=== PATIENT | female | born 1960 | race Hispanic/Latino ===

== ENCOUNTER 2018-12-08 19:16 | Inpatient (IN) | payer BC, OTHER ==
[~2018-12-08] VITALS: Ht 154.9 cm; Wt 80.6 kg
[2018-12-08 19:35] LABS: BASOPHILS % (AUTO) 0.8 % (0.0-5.0); EOSINOPHILS % (AUTO) 2.2 % (0.0-8.0); HEMATOCRIT 37.3 % (36-48); LYMPHOCYTES % (AUTO) 29.6 % (21.0-51.0); MEAN CORPUSCULAR HEMOGLOBIN 30.3 pg (27.0-33.0); MEAN CORPUSCULAR HGB CONC 33.6 g/dL (32.0-36.0); MONOCYTES % (AUTO) 6.9 % (3.0-13.0); NEUTROPHILS % (AUTO) 60.5 % (40.0-77.0); PLATELET COUNT (AUTO) 247 K/uL (130-400); RED BLOOD CELL COUNT(AUTO) 4.14 MIL/uL (4.00-5.50)
[2018-12-08 19:45] LABS: CREATININE 0.7 mg/dL (0.5-1.5); POTASSIUM 3.5 mmol/L (3.5-5.1)
[2018-12-08 19:46] LABS: INR 0.9 (0.85-1.15); PARTIAL THROMBOPLASTIN TIME 24.7 SEC (26.3-35.5); PROTHROMBIN TIME 9.5 SEC (9.6-11.6)
[2018-12-08 19:55] LABS: ALBUMIN 3.3 g/dL (3.5-5.0); BILIRUBIN,TOTAL 0.2 mg/dL (0.2-1.0); TOTAL PROTEIN, SERUM 7.5 g/dL (6.0-8.3)
[2018-12-08 21:58] LABS: APPEARANCE,URINE Clear (CLEAR); BILIRUBIN,URINE Negative (NEGATIVE); COLOR,URINE Yellow (YELLOW); GLUCOSE, URINE (UA) Negative (NEGATIVE); KETONES,URINE Negative (NEGATIVE); LEUKOCYTE ESTERASE ,URINE Negative (NEGATIVE); NITRATE,URINE Negative (NEGATIVE); OCCULT BLOOD,URINE Negative (NEGATIVE); PROTEIN,URINE Negative (NEGATIVE)
[2018-12-08 22:06] LABS: AMPHET/METH SCREEN,URINE POSITIVE (NEGATIVE); BARBITURATE SCREEN, URINE NEGATIVE (NEGATIVE); BENZODIAZEPINES SCREEN,URINE NEGATIVE (NEGATIVE); CANNABINOID SCREEN,URINE NEGATIVE (NEGATIVE); COCAINE SCREEN,URINE NEGATIVE (NEGATIVE); OPIATE SCREEN,URINE NEGATIVE (NEGATIVE); PHENCYCLIDINE SCREEN,URINE NEGATIVE (NEGATIVE)
[2018-12-08] MEDS ORDERED: ASPIRIN 325 MG TABLET ONE (23:33)
[2018-12-09 06:00] LABS: CREATINE KINASE, TOTAL 76 U/L (21-232); MYOGLOBIN 19 ng/mL (10-92); TROPONIN I < 0.04 ng/mL (0.00-0.06)
[2018-12-09 12:39] LABS: CREATINE KINASE, TOTAL 70 U/L (21-232); MYOGLOBIN 17 ng/mL (10-92); TROPONIN I < 0.04 ng/mL (0.00-0.06)
--- NOTE | 2018-12-09 14:30 | NUR ---
PATIENT ADMITTED TO ROOM 316. ASSESSMENT DONE AND DOCUMENTED. PATIENT AWAKE, ALERT AND ORIENTED. PATIENT AND FAMILY ORIENTED TO ROOM AND INSTRUCTED ON HOSPITAL VISITED HOURS. PATIENT DENIES ANY NUMBER OR WEAKNESS RIGHT NOW. WILL CONTINUE TO MONITOR.
--- NOTE | 2018-12-09 15:20 | NUR ---
PAGED DR. VILLALOBOS. WAITING FOR A CALL BACK.
[2018-12-09 15:22] VITALS: BP 133/64
--- NOTE | 2018-12-09 16:40 | NUR ---
DR. VILLALOBOS CALLED DR. VILLALOBOS AND INFORM HIM THAT HIS PATIENT IS NOW IN ROOM 316. NEW ORDERS RECEIVED. DR. VILLALOBOS AWARE OF SOC CONSULT RECOMMENDATIONS. DR. VILLALOBOS STATES " I WILL SEE THE PATIENT LATER TODAY"
[2018-12-09 17:10] VITALS: BP 114/54
[2018-12-09] MEDS ORDERED: CELE-84 PO (18:49)
[2018-12-09] MEDS ORDERED: PHEN-615 PO (18:49)
[2018-12-09] MEDS ORDERED: ESTR1PAT87 TD (18:49)
[2018-12-09] MEDS ORDERED: PANT40TA25 PO (18:49)
[2018-12-09 19:20] VITALS: BP 114/59
--- NOTE | 2018-12-09 23:00 | NUR ---
MD Rounds Dr. Pryor seen rounding reminded of this admission, updated of what was done so far, with pending 2d echo, MRI of the brain, added more orders & carried out. Ordered consult with Neurologist made aware that Dr. Lowry does not see pt on the weekend, pt will be seen by Wednesday, MD also reminded re: home medications, stated will reconcile later, hold for now. Pt's all concern questions addressed by MD. Pt instructed to be NPO after MN until advise as part of the procedure preparations, agreed.
[2018-12-09 23:10] VITALS: BP 127/68
[2018-12-10 03:20] VITALS: BP 120/69
[2018-12-10 05:58] LABS: CHOLESTEROL 167 mg/dL (<200); HDL CHOLESTEROL 46 mg/dL (35-85); LDL DIRECT 109 mg/dL (0-99); TRIGLYCERIDES 120 mg/dL (30-200)
[2018-12-10 06:01] LABS: CREATINE KINASE, TOTAL 47 U/L (21-232); MYOGLOBIN 16 ng/mL (10-92); TROPONIN I < 0.04 ng/mL (0.00-0.06)
[2018-12-10 07:57] VITALS: BP 135/85
[2018-12-10] MEDS: ASPIRIN 325MG EC TAB 325 MG TABLET.DR PO SCH (09:00)
[2018-12-10] MEDS: SODIUM CHLORIDE 0.9% 1000ML 1,000 ML IV SCH (09:46)
[2018-12-10] MEDS ORDERED: LORAZEPAM 1 MG TABLET PO SCH (11:30)
[2018-12-10 11:52] VITALS: BP 131/76
--- NOTE | 2018-12-10 16:28 | NUR ---
INITIAL: Met w pt and family members this afternoon to discuss dcp. Prior to admission she was living w her spouse and son. Pt states that prior to admission she was independent w ambulation and ADLs. She was previously working @ [employer] and was driving where needed. Pt does not have any DME or receive any services. Per pt she feels safe and comfortable to return home at de. Provided pt low income packet. discussed 4$ discount medication program avail @ [facility] or [facility]. [place] to continue to follow and wait for Md recommendations. Addendum: 12/11/18 at 1632 by DANTE RILEY CM Amended: Links added.
[2018-12-10 16:33] VITALS: BP 132/84
[2018-12-10 19:34] VITALS: BP 146/72
[2018-12-10 23:05] VITALS: BP 135/73
[2018-12-11] MEDS: SODIUM CHLORIDE 0.9% 1000ML 1,000 ML IV SCH (04:09)
[2018-12-11 04:33] VITALS: BP 123/74
[2018-12-11] MEDS: ASPIRIN 325MG EC TAB 325 MG TABLET.DR PO SCH (08:00)
[2018-12-11 11:38] VITALS: BP 130/78
[2018-12-11 15:47] VITALS: BP 130/73
[2018-12-11 19:30] VITALS: BP 146/78
[2018-12-11] MEDS ORDERED: ATORVASTATIN CALCIUM 10 MG TABLET PO SCH (21:00)
[2018-12-11 23:41] VITALS: BP 127/68
[2018-12-12 04:25] VITALS: BP 153/79
[2018-12-12 06:49] LABS: HEMATOCRIT 37.1 % (36-48); MEAN CORPUSCULAR HEMOGLOBIN 30.3 pg (27.0-33.0); MEAN CORPUSCULAR HGB CONC 33.7 g/dL (32.0-36.0); NUCLEATED RED BLOOD CELLS 0.1 % (0.0-0.19); PLATELET COUNT (AUTO) 245 K/uL (130-400); RED BLOOD CELL COUNT(AUTO) 4.13 MIL/uL (4.00-5.50); RED CELL DISTRIBUTION WIDTH 13.3 % (11.0-15.5); WHITE BLOOD COUNT (AUTO) 8.2 K/uL (4.8-10.8)
[2018-12-12] MEDS ORDERED: ACETAMINOPHEN 325 MG TAB ONE (06:55)
[2018-12-12] MEDS ORDERED: ACETAMINOPHEN 325 MG TAB PO PRN (07:00)
[2018-12-12 08:00] VITALS: BP 138/73
[2018-12-12] MEDS ORDERED: AMLODIPINE BESYLATE 2.5 MG TAB PO SCH (09:00)
[2018-12-12] MEDS: ASPIRIN 325MG EC TAB 325 MG TABLET.DR PO SCH (09:47)
[2018-12-12 10:09] LABS: CREATININE 0.6 mg/dL (0.5-1.5); POTASSIUM 4.1 mmol/L (3.5-5.1)
--- NOTE | 2018-12-12 13:05 | NUR ---
DISCHARGE PATIENT GIVEN DISCHARGE INSTRUCTIONS VIA TEACH BACK. RX GIVEN FOR LIPITOR AND AMLODIPINE. PATIENT INSTRUCTED REGARDING ASPIRIN 325MG DAILY UNTIL FOLLOW UP WITH DR. CAREY PER DR. REY'S RECOMMENDATIONS. 20G PIV TO LEFT HAND DISCONTINUED, TIP INTACT. PATIENT STABLE AT THIS TIME.
== END 2018-12-12 13:38 | disposition home or self-care (01) | DRG 69 ==
LOC: EDH 19:16 → EDHIP 19:17 → 3CH 12-09 15:01
PROVIDERS: ADMIT Internal Medicine; ATTEND Internal Medicine
DX: G45.9 Transient cerebral ischemic attack, unspecified (principal); M19.90 Unspecified osteoarthritis, unspecified site; E78.00 Pure hypercholesterolemia, unspecified; E78.5 Hyperlipidemia, unspecified; I10 Essential (primary) hypertension; I73.9 Peripheral vascular disease, unspecified; Z96.659 Presence of unspecified artificial knee joint; M50.90 Cervical disc disorder, unspecified, unspecified cervical region
CPT/HCPCS: 36415; 70450; 70496; 70498; 70551; 71045; 72141; 80048; 80053; 80061; 80305; 81003; 82550; 82948; 83874; 84484; 85025; 85027; 85610; 85730; 93005; 93306; 99291; G0378; J7030

== ENCOUNTER 2019-03-31 15:44 | Emergency (ER) | payer OTHER ==
[~2019-03-31 15:44] MED LIST: CELE-84 PO; ESTR1PAT87 TD; PANT40TA25 PO; PHEN-615 PO
[2019-03-31 15:58] LABS: BASOPHILS % (AUTO) 0.8 % (0.0-5.0); EOSINOPHILS % (AUTO) 4.6 % (0.0-8.0); HEMATOCRIT 35.2 % (36-48); LYMPHOCYTES % (AUTO) 44.1 % (21.0-51.0); MEAN CORPUSCULAR HEMOGLOBIN 31.1 pg (27.0-33.0); MEAN CORPUSCULAR HGB CONC 34.7 g/dL (32.0-36.0); MEAN CORPUSCULAR VOLUME 89.6 fL (79-99); NEUTROPHILS % (AUTO) 42.5 % (40.0-77.0); PLATELET COUNT (AUTO) 264 K/uL (130-400); RED BLOOD CELL COUNT(AUTO) 3.93 MIL/uL (4.00-5.50); RED CELL DISTRIBUTION WIDTH 13.5 % (11.0-15.5); WHITE BLOOD COUNT (AUTO) 8.6 K/uL (4.8-10.8)
[2019-03-31 16:09] LABS: CREATININE 0.6 mg/dL (0.5-1.5); POTASSIUM 3.9 mmol/L (3.5-5.1)
[2019-03-31 16:10] LABS: INR 0.93 (0.85-1.15); PARTIAL THROMBOPLASTIN TIME 26.1 SEC (26.3-35.5); PROTHROMBIN TIME 9.8 SEC (9.6-11.6)
[2019-03-31 16:12] LABS: ALBUMIN 3.8 g/dL (3.5-5.0)
[2019-03-31] MEDS ORDERED: METHYLPREDNISOLONE SOD SUCC 125MG/2ML VIAL ONE (16:20)
[2019-03-31] MEDS ORDERED: ASPIRIN 325 MG TABLET ONE (16:20)
[2019-03-31] MEDS ORDERED: IPRATROPIUM/ALBUTEROL SULFATE 3 ML SOLUTION IH ONE (16:27)
[2019-03-31 16:32] LABS: BILIRUBIN,TOTAL 0.3 mg/dL (0.2-1.0); TOTAL PROTEIN, SERUM 7.9 g/dL (6.0-8.3)
== END 2019-03-31 18:18 | disposition home or self-care (01) ==
LOC: EDH 15:44
DX: J45.909 Unspecified asthma, uncomplicated (principal); R06.00 Dyspnea, unspecified; E78.5 Hyperlipidemia, unspecified; K21.9 Gastro-esophageal reflux disease without esophagitis; M19.90 Unspecified osteoarthritis, unspecified site; Z98.890 Other specified postprocedural states; Z79.899 Other long term (current) drug therapy; Z86.73 Personal history of transient ischemic attack (TIA), and cerebral infarction without residual deficits
CPT/HCPCS: 36415; 71045; 80053; 82550; 83874; 84484; 85025; 85610; 85730; 93005; 94640 ×3; 96374; 99285; J2930

== ENCOUNTER 2019-04-11 05:25 | Emergency (ER) | payer OTHER ==
[2019-04-11] MEDS ORDERED: METHYLPREDNISOLONE SOD SUCC 40MG/ML 1ML ONE (05:53)
[2019-04-11] MEDS ORDERED: ERYTHROMYCIN BASE 0.5% OPHTH OINT 1 GM TUBE ONE (05:54)
[2019-04-11] MEDS ORDERED: BENZONATATE 100 MG CAPSULE PO ONE (06:04)
[2019-04-11] MEDS ORDERED: IPRATROPIUM/ALBUTEROL SULFATE 3 ML SOLUTION IH ONE ×2 (06:10→06:49)
[2019-04-11 06:27] LABS: RAPID GROUP A STREP NEGATIVE (NEGATIVE)
== END 2019-04-11 07:14 | disposition home or self-care (01) ==
LOC: EDH 05:25
DX: J45.998 Other asthma (principal); H10.9 Unspecified conjunctivitis; K21.9 Gastro-esophageal reflux disease without esophagitis; E78.5 Hyperlipidemia, unspecified; I10 Essential (primary) hypertension; Z86.73 Personal history of transient ischemic attack (TIA), and cerebral infarction without residual deficits
CPT/HCPCS: 71046; 87804 ×2; 87880; 93005; 94640 ×2; 96372; 99285; J2920

== ENCOUNTER 2019-12-26 19:00 | Emergency (ER) | payer OTHER ==
[2019-12-26] MEDS ORDERED: ORPHENADRINE CITRATE 30 MG/ML ML ONE (19:25)
[2019-12-26] MEDS ORDERED: DEXAMETHASONE SOD PHOSPHATE 10MG/ML 1ML VIAL ONE (19:25)
[2019-12-26] MEDS ORDERED: NAPROXEN 250 MG TAB ONE (19:26)
== END 2019-12-26 20:14 | disposition home or self-care (01) ==
LOC: EDH 19:00
DX: M06.9 Rheumatoid arthritis, unspecified (principal); E78.5 Hyperlipidemia, unspecified; I10 Essential (primary) hypertension; K21.9 Gastro-esophageal reflux disease without esophagitis; M19.90 Unspecified osteoarthritis, unspecified site; Z86.73 Personal history of transient ischemic attack (TIA), and cerebral infarction without residual deficits
CPT/HCPCS: 73030; 93005; 96372 ×2; 99284; J1100; J2360

== ENCOUNTER 2020-08-08 06:20 | Observation (INO) | payer SELFPAY ==
[2020-08-02 13:24] LABS: BASOPHILS % (AUTO) 0.6 % (0.0-5.0); EOSINOPHILS % (AUTO) 5.5 % (0.0-8.0); HEMATOCRIT 38.1 % (36-48); LYMPHOCYTES % (AUTO) 50.7 % (21.0-51.0); MEAN CORPUSCULAR HEMOGLOBIN 28.5 pg (27.0-33.0); MEAN CORPUSCULAR HGB CONC 32.8 g/dL (32.0-36.0); MEAN CORPUSCULAR VOLUME 86.8 fL (79-99); MONOCYTES % (AUTO) 8.1 % (3.0-13.0); NEUTROPHILS % (AUTO) 34.8 % (40.0-77.0); PLATELET COUNT (AUTO) 303 K/uL (130-400); RED BLOOD CELL COUNT(AUTO) 4.39 MIL/uL (4.00-5.50); RED CELL DISTRIBUTION WIDTH 13.5 % (11.0-15.5); WHITE BLOOD COUNT (AUTO) 7.1 K/uL (4.8-10.8)
[2020-08-07 12:56] VITALS: BP 125/64
[2020-08-08] VITALS (23 sets, daily range): BP systolic 98–130; BP diastolic 43–80
[~2020-08-08] VITALS: Ht 152.4 cm; Wt 90.5 kg
[2020-08-08] MEDS: CEFAZOLIN SODIUM 1 GM VIAL IVP SCH ×2 (06:00→08:35)
[~2020-08-08 06:20] MED LIST changes: +ALBUTEROL IH; +AMLO2.5T5 PO; +ASPI-1197 PO; +ATOR10TA69 PO; -CELE-84 PO; +CHOL100018 PO; -ESTR1PAT87 TD; +LACTATED RINGERS 1000ML 1,000 ML IV SCH; -PANT40TA25 PO; +PANT40TA54 PO; -PHEN-615 PO; +TRAM50TA4 PO
[2020-08-08] MEDS ORDERED: SUCCINYLCHOLINE CHLORIDE 20 MG/ML 10 ML VIAL ONE (07:47)
[2020-08-08] MEDS ORDERED: ROCURONIUM 10MG/1ML SYR 10 MG/ML ML ONE (07:48)
[2020-08-08] MEDS ORDERED: LIDOCAINE PF 2% 5ML ABBOJECT ONE (07:48)
[2020-08-08] MEDS ORDERED: PROPOFOL 10 MG/ML 20ML VIAL IV ONE (07:48)
[2020-08-08] MEDS ORDERED: FENTANYL CITRATE PF 50 MCG/1 ML 2ML VIAL ONE (07:48)
[2020-08-08] MEDS ORDERED: KETOROLAC TROMETHAMINE 30MG/ML ONE (09:50)
[2020-08-08] MEDS ORDERED: GLYCOPYRROLATE 1 MG/5 ML SYRINGE ONE (09:50)
[2020-08-08] MEDS ORDERED: NEOSTIGMINE 5MG/5ML SYR IV ONE (09:50)
[2020-08-08] MEDS ORDERED: ONDANSETRON HCL 4 MG/2 ML VIAL ONE (09:50)
[2020-08-08] MEDS ORDERED: MEPERIDINE-PF 25 MG/ML SYG ONE ×2 (10:01→10:35)
[2020-08-08] MEDS ORDERED: MEPERIDINE-PF 75 MG/ML SYG IM PRN (11:15)
[2020-08-08] MEDS ORDERED: ACETAMINOPHEN-CODEINE 300/30MG TAB PO PRN (11:15)
[2020-08-08] MEDS ORDERED: BISACODYL 10 MG SUPP.RECT RC PRN (11:15)
[2020-08-08] MEDS ORDERED: PROMETHAZINE HCL 25 MG/ML 1ML AMPULE IM PRN (11:15)
--- NOTE | 2020-08-08 11:20 | NUR ---
PATIENT C/O PAIN TO PERINEUM. INFORMED PATIENT ICE PACK WILL BE PLACED. PATIENT REFUSED ICE PACK.
[2020-08-08] MEDS: DEXTROSE 5%-LACTATED RINGERS 1,000 ML IV PRN ×2 (11:31→18:17)
[2020-08-08] MEDS ORDERED: MEPERIDINE-PF 50 MG/ML SYG ONE ×3 (13:06→23:01)
[2020-08-08] MEDS: PROMETHAZINE HCL 25 MG/ML 1ML AMPULE IM PRN ×3 (13:14→23:35)
[2020-08-08 15:21] LABS: HEMATOCRIT 34.5 % (36-48)
[2020-08-08] MEDS ORDERED: ALBUTEROL IH PRN (16:15)
[2020-08-08] MEDS: DOCUSATE SODIUM 100 MG CAP PO PRN (22:35)
[2020-08-08] MEDS: SIMETHICONE 80 MG TAB.CHEW PO PRN (22:35)
[2020-08-08] MEDS: IBUPROFEN 600 MG TABLET PO PRN (22:36)
[2020-08-09] MEDS: DEXTROSE 5%-LACTATED RINGERS 1,000 ML IV PRN (02:35)
[2020-08-09 03:47] VITALS: BP 101/56
[2020-08-09 06:30] LABS: HEMATOCRIT 32.6 % (36-48); MEAN CORPUSCULAR HEMOGLOBIN 28.3 pg (27.0-33.0); MEAN CORPUSCULAR HGB CONC 32.5 g/dL (32.0-36.0); MEAN CORPUSCULAR VOLUME 87.2 fL (79-99); RED BLOOD CELL COUNT(AUTO) 3.74 MIL/uL (4.00-5.50); RED CELL DISTRIBUTION WIDTH 13.4 % (11.0-15.5); WHITE BLOOD COUNT (AUTO) 8.6 K/uL (4.8-10.8)
--- NOTE | 2020-08-09 06:30 | NUR ---
HUSAIN CATHETER F/C REMOVED , INTACT, TOLERATED WELL, INSTRUCTED TO CALL FOR ASSISTANCE WHEN SHE HAS URGE TO VOID Addendum: 08/09/20 at 0635 by OSMANY MCCLELLAN LVN Amended: Links added.
[2020-08-09 06:54] VITALS: BP 108/58
[2020-08-09] MEDS: SIMETHICONE 80 MG TAB.CHEW PO PRN (08:40)
[2020-08-09] MEDS: DOCUSATE SODIUM 100 MG CAP PO PRN (08:40)
[2020-08-09] MEDS: IBUPROFEN 600 MG TABLET PO PRN (08:41)
[2020-08-09] MEDS ORDERED: ATORVASTATIN CALCIUM 10 MG TABLET PO SCH (09:00)
[2020-08-09] MEDS ORDERED: AMLODIPINE BESYLATE 2.5 MG TAB PO SCH (09:00)
[2020-08-09] MEDS ORDERED: PANTOPRAZOLE SODIUM 40 MG TABLET.DR PO SCH (09:00)
[2020-08-09] MEDS ORDERED: ASPIRIN 81MG TAB.CHEW PO SCH (09:00)
--- NOTE | 2020-08-09 09:30 | NUR ---
Dr. Barajas at bedside, gave orders for discharge today. Addendum: 08/09/20 at 1456 by ESTEPHANIA CLARK RN Amended: Links added.
[2020-08-09 11:13] VITALS: BP 95/50
--- NOTE | 2020-08-09 11:55 | NUR ---
pt is discharged. verbal and written discharge instructions given, pls refer to [facility]. informed of the follow up appointment, prescription given. informed to call the doctor for further concerns. pt voiced understanding to all things discussed. Addendum: 08/09/20 at 1318 by ESTEPHANIA CLARK RN Amended: Links added.
--- NOTE | 2020-08-09 12:45 | NUR ---
pt is dismissed in stable condition, brought to private car via wheelchair by Renee Granda pcp Addendum: 08/09/20 at 1508 by ESTEPHANIA CLARK RN Amended: Links added.
== END 2020-08-09 12:45 | disposition home or self-care (01) ==
LOC: DAH 06:20 → WSH 06:21 → DAH 06:21 → WSH 11:10
PROVIDERS: ADMIT Obstetrics & Gynecology; ATTEND Obstetrics & Gynecology
DX: N81.3 Complete uterovaginal prolapse (principal); Z20.828 Contact with and (suspected) exposure to other viral communicable diseases; N83.312 Acquired atrophy of left ovary; N83.311 Acquired atrophy of right ovary
CPT/HCPCS: 36415 ×3; 57260; 58260; 85014; 85018; 85025; 85027; 86850 ×2; 86900 ×2; 86901 ×2; 88305; 96360; 96361 ×2; 96372; A4213; A4215; A4221; A4222; A4223; A4344; A4351; A4600; A4663; C9803; G0378 ×19; J0330; J0690; J1885; J2001; J2175 ×5; J2405; J2550 ×3; J2704; J2710; J3010; J3490; J7030 ×2; J7120; U0003

== ENCOUNTER 2022-09-28 06:58 | Day surgery (SDC) | payer OTHER ==
[2022-09-24 14:23] LABS: BASOPHILS % (AUTO) 0.5 % (0.0-5.0); EOSINOPHILS % (AUTO) 2.5 % (0.0-8.0); HEMATOCRIT 40.6 % (36-48); LYMPHOCYTES % (AUTO) 40.3 % (21.0-51.0); MEAN CORPUSCULAR HEMOGLOBIN 29.2 pg (27.0-33.0); MEAN CORPUSCULAR HGB CONC 32.8 g/dL (32.0-36.0); MEAN CORPUSCULAR VOLUME 89.2 fL (79-99); NEUTROPHILS % (AUTO) 50.5 % (40.0-77.0); PLATELET COUNT (AUTO) 292 K/uL (130-400); RED BLOOD CELL COUNT(AUTO) 4.55 MIL/uL (4.00-5.50); RED CELL DISTRIBUTION WIDTH 14.2 % (11.0-15.5); WHITE BLOOD COUNT (AUTO) 9.5 K/uL (4.8-10.8)
[2022-09-24 14:33] LABS: APPEARANCE,URINE CLEAR (CLEAR); BILIRUBIN,URINE NEGATIVE (NEGATIVE); COLOR,URINE LIGHT-YELLOW (YELLOW); GLUCOSE, URINE (UA) NEGATIVE (NEGATIVE); KETONES,URINE NEGATIVE (NEGATIVE); LEUKOCYTE ESTERASE ,URINE 500 Leu/uL (NEGATIVE); NITRATE,URINE NEGATIVE (NEGATIVE); PH,URINE 5.5 (5.0-8.0); PROTEIN,URINE NEGATIVE (NEGATIVE); UROBILINOGEN,URINE 0.2 mg/dL (0.2-1.0)
[2022-09-24 14:33] LABS: INR 0.93 (0.85-1.15); PROTHROMBIN TIME 9.8 SEC (9.6-11.6)
[2022-09-24 14:35] LABS: PARTIAL THROMBOPLASTIN TIME 24.4 SEC (26.3-35.5)
[2022-09-24 14:49] LABS: ALBUMIN 3.4 g/dL (3.5-5.0); CREATININE 0.8 mg/dL (0.5-1.5); POTASSIUM 3.9 mmol/L (3.5-5.1); TOTAL PROTEIN, SERUM 8.3 g/dL (6.0-8.3)
[2022-09-24 14:49] LABS: BACTERIA,URINE RARE /HPF (None Seen); MUCUS,URINE RARE LPF (None Seen); SQUAMOUS EPITHELIAL CELL,UR MOD /HPF (0-2)
[2022-09-25 08:23] VITALS: BP 165/67
[~2022-09-28] VITALS: Ht 154.9 cm; Wt 94.7 kg
[2022-09-28] VITALS (17 sets, daily range): BP systolic 119–155; BP diastolic 48–78
[~2022-09-28 06:58] MED LIST changes: -ALBUTEROL IH; -AMLO2.5T5 PO; +BUPIVACAINE/PF 0.5% 10ML VIAL ONE; +CEFAZOLIN SODIUM 1 GM VIAL IVP SCH; +CHOL-34 PO; -CHOL100018 PO; +ESCI-8 PO; -LACTATED RINGERS 1000ML 1,000 ML IV SCH; +PROP10TA10 PO; -TRAM50TA4 PO
[2022-09-28] MEDS ORDERED: LACTATED RINGERS 1000ML 1,000 ML IV ONE (07:22)
[2022-09-28] MEDS ORDERED: LIDOCAINE PF 100MG/5ML (2%) SYRINGE 5ML ONE (07:41)
[2022-09-28] MEDS ORDERED: MIDAZOLAM HCL 1 MG/ML 2ML VIAL ONE (07:41)
[2022-09-28] MEDS ORDERED: DEXAMETHASONE SOD PHOSPHATE 10MG/ML 1ML VIAL ONE ×2 (07:41→09:08)
[2022-09-28] MEDS ORDERED: SUCCINYLCHOLINE 200MG/10ML SYR ONE (07:41)
[2022-09-28] MEDS ORDERED: ONDANSETRON 4MG INJ ONE ×2 (07:42→09:33)
[2022-09-28] MEDS ORDERED: GLYCOPYRROLATE 1 MG/5 ML SYRINGE ONE (07:42)
[2022-09-28] MEDS ORDERED: NEOSTIGMINE 5MG/5ML SYR IV ONE (07:42)
[2022-09-28] MEDS ORDERED: ROCURONIUM 10MG/1ML SYR 10 MG/ML ML ONE (07:42)
[2022-09-28] MEDS ORDERED: PROPOFOL 10 MG/ML 20ML VIAL IV ONE (07:42)
[2022-09-28] MEDS ORDERED: FENTANYL CITRATE PF 50 MCG/1 ML 5ML AMP IV ONE (07:42)
[2022-09-28] MEDS ORDERED: BUDE10.27 IH (07:51)
[2022-09-28] MEDS ORDERED: BUSP5TAB3 PO (07:51)
[2022-09-28] MEDS ORDERED: CEFAZOLIN SODIUM 2 GM VIAL IVP ONE (08:16)
[2022-09-28] MEDS ORDERED: MEPERIDINE-PF 25 MG/ML SYG ONE (09:33)
[2022-09-28] MEDS ORDERED: KETOROLAC 30MG VIAL (30MG/ML) ONE (09:33)
== END 2022-09-28 11:30 | disposition home or self-care (01) ==
LOC: DAH 06:58
PROVIDERS: ATTEND Student in an Organized Health Care Education/Training Program
DX: K80.44 Calculus of bile duct with chronic cholecystitis without obstruction (principal); Z20.822 Contact with and (suspected) exposure to COVID-19; J45.909 Unspecified asthma, uncomplicated; E66.9 Obesity, unspecified; M19.90 Unspecified osteoarthritis, unspecified site; I11.9 Hypertensive heart disease without heart failure; Z80.9 Family history of malignant neoplasm, unspecified; Z82.49 Family history of ischemic heart disease and other diseases of the circulatory system; Z68.41 Body mass index [BMI] 40.0-44.9, adult; Z79.899 Other long term (current) drug therapy; Z79.01 Long term (current) use of anticoagulants; Z79.82 Long term (current) use of aspirin; Z98.890 Other specified postprocedural states
CPT/HCPCS: 80053; 85025; 85610; 85730; 87088; 87426; 81001; 36415; 71045; 93005; 47562; A6260; A4663; A6207; J7030; J7120; J3010; J0690 ×2; J0330; J3490 ×3; J1100 ×2; J2710; J2001; J2250; J2704; J2405 ×2; J1885; J2175; A6206; C1769 ×3; G0168; A4649 ×2; A4215; A4223; A4222; A4221; A4600